=== PATIENT | female | born 1980 | race Caucasian/White ===

== ENCOUNTER 2025-06-27 16:08 | Emergency (ER) | payer OTHER, SELFPAY ==
--- NOTE | ~2025-06-27 | XR_ITS ---
EXAMINATION: XR CHEST CLINICAL INFORMATION: chest pain COMPARISON: 02/06/2010. TECHNIQUE: 2 views of the chest were obtained. FINDINGS: The cardiac, hilar, and mediastinal contours are normal. The lungs are clear bilaterally. There is no pneumothorax or pleural effusion. There is no focal osseous or soft tissue abnormality. XR/XR chest 2V IMPRESSION: Normal chest. Electronically signed by: Carlin Garcia MD 06/27/2025 05:04 PM [place]
--- NOTE | 2025-06-27 16:12 | ECG_ITS ---
Test Reason : CP Blood Pressure : */* mmHG Vent. Rate : 87 BPM Atrial Rate : 87 BPM P-R Int : 128 ms QRS Dur : 100 ms QT Int : 354 ms P-R-T Axes : * -8 162 degrees QTcB Int : 425 ms Normal sinus rhythm Incomplete right bundle branch block Lateral infarct , age undetermined Abnormal ECG No previous ECGs available Referred By: Kecia Dixon Electronically Signed By: NATALIA HUMPHREY
[2025-06-27 16:20] VITALS: BP 139/67; PULSE 89; RESP 18; TEMP 36.3; O2SAT 99; BMI 24.4
--- NOTE | 2025-06-27 16:26 | ED_ITS ---
HPI - Chest Pain General Chief Complaint: Chest Pain Stated Complaint: Palpitations Time Seen by Provider: 06/27/25 19:30 Source: patient Mode of arrival: ambulatory Limitations: no limitations History of Present Illness ED Provider: Kecia Dixon PA-C HPI narrative: Patient is a 44 year old female with a history asthma, anxiety, and depression presenting to the emergency department today with intermittent chest pain and elevated heart rate. Patient states that over the last day she has had intermittent chest pain with an elevated heart rate. Patient states that her heart rate normally sits in the 60s and it has been in the 80s over the last day or so. Patient denies any other complaints at this time. Related Data Home Medications ?Medication ?Instructions ?Recorded ?Confirmed albuterol (refill) 90 mcg inhalation 06/16/20 mcg/actuation aerosol inhaler Previous Rx's ?Medication ?Instructions ?Recorded nicotine 14 mg/24 hr daily 1 patch transdermal Q24H 28 days 06/16/20 transdermal patch #28 ea ciprofloxacin HCl 500 mg tablet 500 mg PO BID #14 tabs 07/20/21 (Cipro) phenazopyridine 200 mg tablet 200 mg PO TID 3 days #9 tabs 07/20/21 (Pyridium) albuterol sulfate 90 mcg/actuation 1 inh inhalation QI D 30 days #8.5 09/28/21 aerosol inhaler (Ventolin HFA) grams lorazepam 0.5 mg tablet 0.5 mg PO BID PRN anxiety 30 days 05/09/22 #60 tabs budesonide-formoterol HFA 160 2 puff inhalation Q12H 3 0 days 08/26/22 mcg-4.5 mcg/actuation aerosol #10.2 grams inhaler (Symbicort) Allergies Allergy/AdvReac Type Severity Reaction Status Date / Time azithromycin (AZITHROMYCIN) Allergy Intermediate NAUSEA, Verified 06/27/25 16:24 hives codeine (CODEINE) Allergy Intermediate NAUSEA Verified 06/27/25 16:24 Review of Systems 2 Constitutional: Constitutional: Reports as per HPI Eyes: Eyes: Reports as per HPI ENT: Reports as per HPI Cardiovascular: Cardiovascular: Reports as per HPI Respiratory: Respiratory: Reports as per HPI Gastrointestinal: Gastrointestinal: Reports as per HPI Genitourinary: Genitourinary: Reports as per HPI Musculoskeletal: Musculoskeletal: Reports as per HPI Integumentary/Breasts: Skin/Breast: Reports as per HPI Neurologic: Reports as per HPI Psychiatric: Psychiatric: Reports as per HPI Endocrine: Endocrine: Reports as per HPI Hematologic/Lymphatic: Hematologic/Lymphatic: Reports as per HPI Allergic/Immunologic: Allergic/Immunologic: Reports as per HPI [facility] Past Medical History Attestation statement: The following information was validated with the patient. Source: old records reviewed and nursing notes reviewed Medical History Asthma Anxiety and depression Family History Family History Father Mitral valve replaced Mother Hypertension Social History Social History Advance Directives: No Advance Directives Information Provided: Yes Do you have a plan to hurt others: No Plan Physical Exam 2 Vital Signs: Vital Signs: Last Vital Signs Temp 97.6 F 06/27/25 20:03 Pulse 76 06/27/25 20:03 Resp 20 06/27/25 20:03 BP 118/72 06/27/25 20:03 Pulse Ox 100 06/27/25 20:03 O2 Del Method Room Air 06/27/25 20:03 BMI result Body Mass Index 24.4 Const: General: cooperative, alert and awake Orientation/consciousness: p atient oriented x3 HEENT: Head: Yes normal to inspection and Yes atraumatic Ears: hearing grossly normal bilaterally and external ears normal General nose exam: Normal external nose present, no nasal discharge noted and no epistaxis Face and sinus: Yes normal facial exam, No abrasion and No laceration Mouth: Normal oral and palatal mucosa present, no drooling and no muffled voice Eyes: General: appearance normal, both eyes and all related structures P eriorbital: periorbital findings normal Eyelids: Yes eyelids normal C onjunctivae: conjunctivae normal Pupils: Equal, round and reactive pupils present EOM: EOMs intact bilaterally Resp: Effort & Inspection: normal respiratory effort and able to speak in complete sentences Neuro: General: patient oriented x3, moves all extremities and CN's II-XI intact bilaterally Cranial nerves: Yes Equal, round and reactive pupils present Cognition (Neuro): normal cognition Extrem: General: Yes full ROM Psych: Appearance: grossly normal Mental Status: mental status grossly normal Attitude: cooperative Course Course Course Narrative: Rapid medical examination performed in triage by Kecia Dixon PA-C: Patient is a 44 year old female presenting to the emergency department with intermittent chest pain. Detailed physical exam and review of systems are deferred to the social media marketing specialist. EKG, labs, imaging, swabs ordered. Patient placed back in the waiting room pending room availability and results. Medical Decision Making Medical Decision Making [facility] Narrative: Patient is a 44 year old female with a history asthma, anxiety, and depression presenting to the emergency department today with intermittent chest pain and elevated heart rate. Patient's physical exam was as noted in the physical exam portion of this note. Patient's blood work was unremarkable. Patient's EKG showed no obvious evidence of new / current arrhythmia, ischemia, or infarct. It did show some POSSIBLE evidence of previous ischemia that the patient should have evaluated by a hard rock drill operator. Patient's chest x-ray showed no acute process. I explained my physical exam findings as well as all test results to the patient. I answered all questions asked by the patient. I stressed the importance of the patient taking her medication as directed (either prescribed or as the over the counter packaging recommends). I stressed the importance of the patient following up with her primary care provider. I stressed the importance of the patient returning to the emergency department immediately if her symptoms were to worsen or if she were to develop any dizziness, shortness of breath, difficulty breathing, chest pain, blurry vision, loss of vision, nausea, vomiting, abdominal pain, fever, chills, back pain, or any other complaints. Patient verbalized agreement and understanding with this treatment plan and discharge. Differential Diagnosis Differential Diagnoses: The differential diagnosis associated with the presentation includes Intermittent chest pain Palpitations NSTEMI STEMI Admission/Observation Consideration of admission/observation: Escalation of care including admission/observation considered Patient would have been admitted to the hospital had her work up had any findings where hospital admission was appropriate and her clinical presentation warranted hospital admission. Lab Data [facility] Lab Attestation statement: I reviewed the patient's lab results. My interpretation of these results are in the [facility] Rationale portion of this note. 06/27/25 16:32 06/27/25 16:32 Labs: Lab Results 06/27/25 Range/Units 16:32 WBC 7.3 (4.8-10.8) X10*3/uL RBC 4.13 L (4.20-5.50) X10*6/uL Hgb 12.4 (12.0-16.0) g/dl Hct 37.2 (37.0-47.0) % MCV 90.1 (80.0-98.0) fL MCH 30.0 (27.0-33.0) pg MCHC 33.3 (31.0-35.0) g/dl RDW 12.9 (11.0-16.0) % Plt Count 216 (160-400) X10*3/uL MPV 10.0 (9.4-12.3) fL Immature Gran % (Auto) 0.3 (0.0-0.4) % Neut % (Auto) 56.9 (45-73) % Lymph % (Auto) 29.2 (20-40) % [place] % (Auto) 5.4 (2-11) % Eos % (Auto) 7.5 H (0-4) % Baso % (Auto) 0.7 (0-2) % Lymph # (Auto) 2.1 (1.2-4.9) X10*3/uL [place] # (Auto) 0.4 (0.1-1.2) X10*3/uL Eos # (Auto) 0.6 H (0.0-0.4) X10*3/uL Baso # (Auto) 0.1 (0.0-0.2) X10*3/uL Abs Immat Gran (auto) 0.02 (0.00-0.03) X10*3/uL Absolute Neuts (auto) 4.2 (2.0-8.3) x10*3/uL Absolute Nucleated RBC 0.000 (0.0-0.012) X10*3/uL Nucleated RBC % (auto) 0.0 (0.0-0.2) /100WBC Sodium 142 (135-145) mmol/L Potassium 3.5 (3.3-5.1) mmol/L Chloride 111 H (96-108) mmol/L Carbon Dioxide 25 (22-29) mmol/L Anion Gap 10 L (12-20) BUN 10 (9-16) mg/dL Creatinine 0.80 (0.5-1.4) mg/dL Estim Creat Clear Calc 87.2 Estimated GFR > 60 Random Glucose 100 (60-115) mg/dL Calcium 9.3 (8.4-10.2) mg/dL Magnesium 2.1 (1.6-2.6) mg/dL Total Bilirubin 0.3 (0.0-1.0) mg/dL AST 15 (5-31) U/L ALT 10 (0-31) U/L Alkaline Phosphatase 46 (39-117) U/L Troponin I High Sens < 2.7 (<3.5-17.0) ng/L NT-Pro-B Natriuret Pep 91.9 (<300) pg/mL Total Protein 7.0 (6.5-8.0) g/dL Albumin 4.7 (3.5-5.0) g/dL TSH 1.37 (0.32-4.0) uIU/mL Influenza Type A (PCR) NEGATIVE (Negative) Influenza Type B (PCR) NEGATIVE (Negative) RSV RNA Qual (PCR) NEGATIVE (Negative) SARS-CoV-2 RNA (RT-PCR) NEGATIVE (Negative) Independent Interpretation I performed an independent interpretation of an: Plain X-Ray Interpretation: My interpretation is in agreement with the radiologist's impression of this imaging study as written below. EXAMINATION: XR CHEST CLINICAL INFORMATION: chest pain COMPARISON: 02/06/2010. TECHNIQUE: 2 views of the chest were obtained. FINDINGS: The cardiac, hilar, and mediastinal contours are normal. The lungs are clear bilaterally. There is no pneumothorax or pleural effusion. There is no focal osseous or soft tissue abnormality. XR/XR chest 2V IMPRESSION: Normal chest. Electronically signed by: Carlin Garcia MD 06/27/2025 05:04 PM [facility] Dictated By: Carlin Garcia MD Signed By: Electronically signed by Carlin Garcia MD 06/27/25 1704 I independently interpreted this EKG and am in agreement with the below findings: Vent. Rate: 87 BPM Atrial Rate: 87 BPM P-R Int: 128 ms QRS Dur: 100 ms QT Int: 354 ms P-R-T Axes: * -8 162 degrees QTcB Int: 425 ms Normal sinus rhythm Incomplete right bundle branch block Lateral infarct, age undetermined No previous ECGs available DD/ 1626 Radiology Impression Discussion of test interpretation with radiology: I have reviewed the radiologist's reading. Discharge Plan Discharge Clinical Impression: Palpitations, Intermittent chest pain Patient Disposition: Home, Self-Care Instructions: Chest Pain (ED), Heart Palpitations (DC) Additional Instructions: Your work up today was reassuring there is no EMERGENT cause for your symptoms. Your EKG showed POSSIBLE evidence of OLD injury - this should be followed up on with a hard rock drill operator. IF you are prescribed home medications and/or you are taking over the counter medications at home - it is very important you continue to do so as prescribed / directed unless told otherwise by a healthcare provider. Follow up with your primary care provider. Do your best to stay well hydrated and rest. Return to the emergency department immediately if your symptoms worsen or if you develop any numbness, tingling, dizziness, shortness of breath, difficulty breathing, chest pain, blurry vision, loss of vision, nausea, vomiting, abdominal pain, fever, chills, back pain, or any other complaints. L If you do not have a primary care provider - call any of the below numbers to establish and follow up with a primary care provider. [facility] ([place]) [phone] [place] [address], [address] [facility] ([address] [place]) [phone] [place] [address], [address] [facility], [address] [facility] ([address] [place]) [phone] [place] [address], [address] [facility], [address] [facility] ([place]) [phone] [place] [address], [address] [facility], [address] [facility] Family [facility] [phone] [address] [facility], [address] Please see the information below about our Patient Portal. If you are not yet enrolled in the [facility] Patient Portal, you will receive an enrollment email invitation following your visit to any [facility] care setting. You may also self-enroll in the Patient Portal by visiting our website: [email or web address] The following information is required to access the Patient Portal: - Your [facility] Medical Record Number - Your personal home email address (must match what is in your electronic medical record, Registration staff can assist with this) - Name - Date of Capabilities of the Patient Portal: - Message some providers - View upcoming appointments - Access your health summary, medical history, and visit history - View current conditions and allergies - View procedure and lab results - View your medications, including guidelines, side effects, and precautions - Complete pre-appointment questionnaires requested by your provider - Ready summary reports of your office visits and procedures To access the Patient Portal Mobile Oc, follow these directions: - Search [address] in the Oc Store or Google [employer] Store - Download the Oc - Search for [facility] - Enter your login/password Prescriptions: No Action albuterol (refill) 90 mcg/actuation aerosol inhalation nicotine 14 mg/24 hr patch 24 hour 1 patch transdermal Q24H 28 Days Qty: 28 0RF albuterol sulfate [Ventolin HFA] 90 mcg/actuation HFA aerosol inhaler 1 inh inhalation QID 30 Days Qty: 8.5 7RF lorazepam 0.5 mg tablet 0.5 mg PO BID PRN (Reason: anxiety) 30 Days Qty: 60 3RF budesonide-formoterol [Symbicort] 160-4.5 mcg/actuation HFA aerosol inhaler 2 puff inhalation Q12H 30 Days Qty: 10.2 5RF ciprofloxacin HCl [Cipro] 500 mg tablet 500 mg PO BID Qty: 14 0RF phenazopyridine [Pyridium] 200 mg tablet 200 mg PO TID 3 Days Qty: 9 0RF Referrals: [facility] [Provider Group] Referral Note: Call to establish and follow up with a hard rock drill operator. Interventions: ED Discharge Assessment Last Done: 06/27/25 20:03 Discharge Date/Time: 06/27/25 20:09 Print Language: Afghan
[2025-06-27 16:45] LABS: MANUAL DIFF FLAG NO
[2025-06-27 16:48] LABS: Hematocrit 37.2 % (37.0-47.0); Hemoglobin 12.4 g/dl (12.0-16.0); Imm Gran Abs Auto 0.02 X10*3/uL (0.00-0.03); Imm Gran Pct Auto 0.3 % (0.0-0.4); Lymphocytes Absolute Auto 2.1 X10*3/uL (1.2-4.9); Mean Corpuscular HGB Conc 33.3 g/dl (31.0-35.0); Mean Corpuscular Hemoglobin 30.0 pg (27.0-33.0); Mean Corpuscular Volume 90.1 fL (80.0-98.0); NRBC Abs Auto 0.000 X10*3/uL (0.0-0.012); NRBC Pct Auto 0.0 /100WBC (0.0-0.2); Platelet Count 216 X10*3/uL (160-400); Red Blood Count 4.13 X10*6/uL (4.20-5.50); White Blood Count 7.3 X10*3/uL (4.8-10.8)
[2025-06-27 17:03] LABS: Alanine Aminotransferase 10 U/L (0-31); Albumin Level 4.7 g/dL (3.5-5.0); Alkaline Phosphatase 46 U/L (39-117); Anion Gap 10 (12-20); Aspartate Amino Transferase 15 U/L (5-31); Blood Urea Nitrogen 10 mg/dL (9-16); Calcium 9.3 mg/dL (8.4-10.2); Carbon Dioxide 25 mmol/L (22-29); Chloride 111 mmol/L (96-108); Creatinine Clr Calc Pharmacy 87.2; Estimated Glomerular Filt Rate > 60; Magnesium 2.1 mg/dL (1.6-2.6); Potassium 3.5 mmol/L (3.3-5.1); Sodium 142 mmol/L (135-145); Total Protein 7.0 g/dL (6.5-8.0)
[2025-06-27 17:14] LABS: Troponin-I High Sensitivity < 2.7 ng/L (<3.5-17.0)
[2025-06-27 17:24] LABS: NT Pro B Type Natriuretic Pept 91.9 pg/mL (<300)
[2025-06-27 17:50] LABS: Resp Syncy Virus RNA Qual PCR NEGATIVE (Negative); SARS COV2 PCR INHOUSE NEGATIVE (Negative)
[2025-06-27 19:45] VITALS: BP 118/72; PULSE 76; RESP 20; TEMP 36.4; O2SAT 100
[2025-06-27 20:03] VITALS: BP 118/72; PULSE 76; RESP 20; TEMP 36.4; O2SAT 100
--- OUTSIDE RECORDS SUMMARY | 2025-06-27 20:09 | XMS_ITS | Clinical Summary ---
Author Organization [facility] Address [address] [place] [phone] Phone Care Team Providers Care Barrel Raiser Helper Name Role Phone Lilia Caballero MD Primary Care Provider Allergies Active Allergy Reactions Criticality Noted Date Comments Azithromycin 01/09/2023 Other reaction(s): abdominal pain Medications LORazepam (ATIVAN) 0.5 MG tablet TAKE 1 TABLET BY MOUTH TWICE A DAY NEEDED FOR ANXIETY FOR 30 DAYS 3 Active SYMBICORT 160-4.5 mcg/actuation inhaler INHALE 2 PUFF BY MOUTH AND INTO THE LUNGS EVERY 12 HOURS FOR 30 DAYS 3 Active albuterol (PROAIR HFA) 90 mcg/actuation inhaler INHALE 2 PUFFS EVERY 4 HOURS BY INHALATION ROUTE. Active phenazopyridine (PYRIDIUM) 200 MG tablet Take 1 tablet (200 mg total) by mouth 3 (three) times a day as needed for pain (specific location in comments). 10 tablet 3 Active Active Problems No known active problems Social History Tobacco Use Types Packs/Day Years Used Date Smoking Tobacco: Never Smokeless Tobacco: Never Alcohol Use Standard Drinks/Week Comments Never 0 (1 standard drink = 0.6 oz pur e alcohol) Education Answer Date Recorded Are you interested in more education? Not on uma e 01/09/2023 Are you concerned about learning? Not on file 01/09/2023 No 01/09/2023 No 01/09/2023 Digital Access Answer Date Recorded No 01/09/2023 No 01/09/2023 Reliable internet access at home? Not on file 01/09/2023 Device with a working camera? Not on file Comments No Sex and Gender Information Value Date Recorded Sex Assigned at Not on file Legal Sex Female 1:06 PM EDT Gender Identity Not on file Sexual Orientation Not on file Last Filed Vital Signs Vital Sign Reading Time Taken Comments Blood Pressure 122/74 01/09/2023 1:55 PM EDT Pulse 73 01/09/2023 1:55 PM EDT Temperature 36.7 C (98.1 F) 01/09/2023 1:55 PM EDT Respiratory Rate 18 01/09/2023 1:55 PM EDT Oxygen Saturation 99% 01/09/2023 1:55 PM EDT Inhaled Oxygen Concentration - - Weight 63.5 kg (140 lb) 01/09/2023 1:55 PM EDT Height 170.2 cm (5' 7 ) 01/09/2023 1:55 PM EDT Body Mass Index 21.93 01/09/2023 1:55 PM EDT Plan of Treatment Health Maintenance Due Date Last Done Comments Adult Td,Tdap Booster 1980 DEPRESSION SCREENING 1992 HEPATITIS C SCREENING 1998 HIV ONE-TIME SCREENING (18-6 5 YEARS) 1998 PAP SMEAR 2001 MAMMOGRAM 2020 INFLUENZA VACCINE (#1) 2025 COVID-19 VACCINE (2024-2 6 season) 2025 SMOKING STATUS SCREENING (On ce After 26 Yrs) Completed 01/09/2023 HEPATITIS A VACCINES Aged Out No long er eligible based on patient's age to complete this topic HIB VACCINES Aged Out No longer eligi ble based on patient's age to complete this topic MENINGOCOCCAL VACCINES (ACWY) Aged Out No longer eligible based on patient's age to complete this topic MENINGOCOCCAL VACCINES (B) Aged Out N o longer eligible based on patient's age to complete this topic PNEUMOCOCCAL VACCINES (0-49 years) Aged Out No longer eligible based on patient's age to complete this topic Medical Devices Not on [place] [address] [place] [address] ACO ACO ACO ACO ACO ACO Care Teams Barrel Raiser Helper Relationship Specialty Start Date End Date Lilia Caballero MD [facility] [place] [address] PCP - General Internal Medicine 01/09/23 Additional Source Comments The information contained in this document represents components of the legal health record. It is not the complete legal health record.[facility]
--- OUTSIDE RECORDS SUMMARY | 2025-06-27 20:09 | XMS_ITS | Data Portability ---
Author Organization [place] - [facility] Address [address] [place] [address] Care Team Providers Care Supervisor [employer] Name Role Phone RAFFY BLAIR Primary Care Provider [phone] Assessment No assessment recorded. Plan of Treatment Reminders Order Date Submit Date Provider Last Modified By Organization Details Last Modified Time Details Appointments None recorded. Lab urinalysis, dipstick 2020 [facility], [address] , [facility] [place], [address], 16:31:41 culture, urine 2020 [facility], [address] , [facility] [place], [address], 07:26:14 test, urine 2020 [facility], [address] , [place], [address], 16:31:41 bacterial vaginosis + vaginitis panel, vaginal - NuSwab V6+ Lab Gregory: [id number] 2020 [facility], [address] [place] [address], [address], 14:18:19 unlisted lab - sars-cov-2 (naat) 2020 [facility], [address] [place], [address], 03:45:08 Referral None recorded. Procedures pulse oximetry (PROC) 2020 [facility], [address] , [place], [address], 08:49:38 pulse oximetry (PROC) 2020 [facility], [address] , [place], [address], 08:48:47 Surgeries None recorded. Imaging None recorded. Medication Orders metronidazo le 500 mg tablet 2020 [facility]/Pharmacy #[id number], [address] [place], [address], 16:30:16 doxycycline monohydrate 100 mg capsule 2020 021 [facility]/Pharmacy #[id number], [address] [place], [address], 11:12:44 ProAir HFA 90 mcg/actuati on aerosol inhaler 2020 [facility]/Pharmacy #[id number], [address] [place], [address], 11:12:43 prednisone 50 mg tablet 2020 [facility]/Pharmacy #[id number], [address] [place], [address], 11:12:43 Patient TargetsNo targets recorded. Patient Instructions Encounter Date Encounter Id Patient Instructions Last Modified By Organization Details Last Modified Time 05/18/2021 [id number] pneumonia: care instructions cambler Not available 05/18/2021 11:12:39 06/01/2021 [id number] it is recommende d you abstain from intercourse for 1 week while you are being treated, and following this time only if you are asymptomatic. it is also recommended you and your partner have repeat testing in 3 months. avaine Not available 06/01/2021 16:34:40 You have had an Urgent Care Visit which is designed to address acute issues. It does not represent an exhaustive evaluation of your symptom complex, but is an attempt to treat and manage the most likely cause of your most pressing physical issues. If you are not improved in the time frame that we have discussed, please seek the advice of your PCP who is in a position to order further diagnostic testing and possible specialist consultation. If you are rapidly deteriorating despite the treatment recommendations please do not wait to see your PCP and do proceed to the closest ER where a comprehensive evaluation including consideration to lab and other diagnostic testing as well as consultation is more expeditiously accessible. If you were prescribed medications they have been directly submitted to your pharmacy on file. Please make sure you finish all your medications and if you develop major side effects related to them please do stop taking them and check with your PCP to see if you need to get an alternative medication. If labs or xray were ordered, we will call you with the results if there is any change to your plan of care. avaine Not available 06/01/2021 16:31:07 Reason for Referral None Reported. Results Created Date Observation Date Name Description Value Unit Range Abnormal Flag Note LastModifiedBy Organization Detail LastModifiedTime 05/18/20 21 05/19/2021 SARS- COV-2 (NAAT ) sars-cov-2 NOT DETECT ED not detect . The Aptim a SARS- CoV-2 assay is a nucle ic acid ampli ficat ion in vitro diagn ostic test inten ded for the quali tativ e detec tion of RNA from SARS- CoV-2 using Trans cript ion Media stewart Ampli ficat ion (TMA) isola stewart and purif ied from nasop haryn geal (T[employer]IC), nasal , mid-t urbin ate, and oroph aryng eal (OP) swab speci mens obtai andres from indiv idual s meeti ng COVID -19 clini juan and/o r epide miolo gical crite vian. The Aptim a TMA metho d is equiv alent in sensi tivit y and speci ficit y to metho ds utili zing PCR and RT-PC R. Resul ts are for the ident ifica tion of SARS- CoV-2 RNA which is gener ally detec table in upper respi rator y sampl es durin g the acute phase of infec tion. Posit george resul ts are indic ative of the prese nce of SARS- CoV-2 RNA; clini juan corre latio n with patie nt histo ry and other diagn ostic infor matio n is neces geovanna to deter mine patie nt infec tion statu s. Posit george resul ts do not rule out bacte rial infec tion or co-in fecti on with other virus es. Negat george resul ts do not precl ude SARS- CoV-2 infec tion and shoul d not be used as the sole basis for patie nt manag ement decis ions. Negat george resul ts must be combi andres with clini juan obser vatio ns, patie nt histo ry, and epide miolo gical infor matio n. The Aptim a SARS- CoV-2 assay is only for use under the Food and Drug Admin istra tion' s Emerg ency Use Autho rizat ion (EUA) . Not Available [facility] Laboratory Department [address] [place] [address], [id number] 05/19/2021 03:45:08 05/20/20 21 05/20/2021 pulse oxime try (PROC ) Unknown Analyte 80 Not Available [facility] [address], [address], 05/18/2021 11:08:53 05/20/20 21 05/20/2021 pulse oxime try (PROC ) Unknown Analyte 97 Not Available [facility] [address], [address], 05/18/2021 11:08:53 05/20/20 21 05/20/2021 pulse oxime try (PROC ) Unknown Analyte sittin g Not Available [facility] [address] [place], [address], 05/18/2021 11:08:53 05/20/20 21 05/20/2021 pulse oxime try (PROC ) Unknown Analyte room air Not Available [facility] [address] [place], [address], 05/18/2021 11:08:53 05/20/20 21 05/20/2021 pulse oxime try (PROC ) Unknown Analyte 80 Not Available [address] [place] [place], [address], 05/18/2021 11:07:55 05/20/20 21 05/20/2021 pulse oxime try (PROC ) Unknown Analyte 97 Not Available [address], [address], 05/18/2021 11:07:55 05/20/20 21 05/20/2021 pulse oxime try (PROC ) Unknown Analyte sittin g Not Available [address] [facility] [place], [address], 05/18/2021 11:07:55 05/20/20 21 05/20/2021 pulse oxime try (PROC ) Unknown Analyte room air Not Available [address], [address], 05/18/2021 11:07:55 06/01/2006/03/2021 URINE CULTU RE urine culture Colon y Count : <1,00 0 col/m L No Growt h Not Available [facility] Laboratory Department [address] [place], [address] 06/03/2021 07:26:14 06/01/20 21 06/05/2021 NUSWA B VAGIN ITIS PLUS (VG+) atopobium vaginae HIGH - 2 score . abnormal Not Available [facility] Department [address] [place] [address], [id number] 06/05/2021 14:18:19 06/01/20 21 06/05/2021 NUSWA B VAGIN ITIS PLUS (VG+) bvab 2 HIGH - 2 score . abnormal Not Available [facility] Department [address] [place] [address], [id number] 06/05/2021 14:18:19 06/01/20 21 06/05/2021 NUSWA B VAGIN ITIS PLUS (VG+) megasphaera 1 LOW - 0 score . Calcu late total score by collette montez the 3 indiv idual bacte rial vagin osis (BV) marke r score s toget her. Total score is inter prete d as follo ws: Total score 0-1: Indic ates the absen ce of BV. Total score 2: Indet ermin ate for BV. Addit ional clini juan data shoul d be evalu ated to estab uri a diagn osis. Total score 3-6: Indic ates the prese nce of BV. This test was devel oped and its perfo rmanc e rosina cteri stics deter mined by [facility]. It has not been clear ed or appro dorinda by the Food and Drug Admin istra tion. Not Available [facility] Department [address] [place] [address], [id number] 06/05/2021 14:18:19 06/01/20 21 06/05/2021 NUSWA B VAGIN ITIS PLUS (VG+) esperanza albicans, JARED POSITI VE negati ve abnormal Not Available [facility] Department [address] [place] [address], [id number] 06/05/2021 14:18:19 06/01/20 21 06/05/2021 NUSWA B VAGIN ITIS PLUS (VG+) esperanza glabrata, JARED NEGATI VE negati ve Not Available [facility] Department [address] [place] [address], [id number] 06/05/2021 14:18:19 06/01/20 21 06/05/2021 NUSWA B VAGIN ITIS PLUS (VG+) trich vag by JARED NEGATI VE negati ve Not Available [facility] Department [address] [place] [address], [id number] 06/05/2021 14:18:19 06/01/20 21 06/05/2021 NUSWA B VAGIN ITIS PLUS (VG+) chlamydia trachomatis, JARED NEGATI VE negati ve Not Available [facility] Department [address] [place], [address] 06/05/2021 14:18:19 06/01/20 21 06/05/2021 NUSWA B VAGIN ITIS PLUS (VG+) neisseria gonorrhoeae, JARED NEGATI VE negati ve Perfo rmed at: 01 - [facility] [place] [address] Count Includes [facility] [address] [place] [address] Lab Direc tor: Trinity Smith MD, Phone : [phone] Not Available [facility] Laboratory Department [address] [place], [address] 06/05/2021 14:18:19 06/01/20 21 06/01/2021 pregn emi test, urine Result negati ve Not Available [address] [place], [address], 06/01/2021 16:26:13 06/01/20 21 06/01/2021 pregn emi test, urine Internal Control Valid Not Available [address] [place], [address], 06/01/2021 16:26:13 06/01/20 21 06/01/2021 pregn emi test, urine Lot # [id number] 2001 Not Available [address] [place], [address], 06/01/2021 16:26:13 06/01/2006/01/2021 pregn emi test, urine Exp. Date Not Available [address], [address], 06/01/2021 16:26:13 06/01/20 21 06/01/2021 urina lysis , dipst ick Lot # [id number] Not Available [facility] [address] [place] [address], [address], 06/01/2021 14:59:25 06/01/20 21 06/01/2021 urina lysis , dipst ick Exp. Date Not Available [facility] [address] [place] [address], [address], 06/01/2021 14:59:25 06/01/20 21 06/01/2021 urina lysis , dipst ick Leukocytes Trace Not Available [facility] [address] [place], [address], 06/01/2021 14:59:25 06/01/20 21 06/01/2021 urina lysis , dipst ick Nitrite negati ve Not Available [facility] [address] [place], [address], 06/01/2021 14:59:25 06/01/20 21 06/01/2021 urina lysis , dipst ick Urobilinogen Normal Not Available [facility] [address] [place], [address], 06/01/2021 14:59:25 06/01/20 21 06/01/2021 urina lysis , dipst ick Protein Negati ve Not Available [facility] [address] [place], [address], 06/01/2021 14:59:25 06/01/20 21 06/01/2021 urina lysis , dipst ick PH 6.5 Not Available [facility] [address] [place], [address], 06/01/2021 14:59:25 06/01/20 21 06/01/2021 urina lysis , dipst ick Blood Non-He molyze d Not Available [facility] In [address] [place], [address], 06/01/2021 14:59:25 06/01/20 21 06/01/2021 urina lysis , dipst ick Specific Carmine 1.010 Not Available [facility] In [address] [place], [address], 06/01/2021 14:59:25 06/01/20 21 06/01/2021 urina lysis , dipst ick Ketone Negati ve Not Available [facility] In [address] [place], [address], 06/01/2021 14:59:25 06/01/20 21 06/01/2021 urina lysis , dipst ick Bilirubin Negati ve Not Available [address] [place], [address], 06/01/2021 14:59:25 06/01/20 21 06/01/2021 urina lysis , dipst ick Glucose Negati ve Not Available [address] [place], [address], 06/01/2021 14:59:25 Result Notes None recorded. Problems Name Problem SNOMED Code Status Onset Date Resolution Date Notes Provider Name and Address Organization Details Recorded Time Asthma 244004180 Active 021 YUDI STEVENSON NP [address] [place], [address], [facility] 11:02:12 Problem Notes None recorded. Medical Equipment None Reported. Allergies Allergen ID Allergen Name Allergen Category Reaction Reaction Severity Criticality Documentation Date Start Date Code Code System Note Provider Name and Address Organization Details Recorded Time 855597 Zithromax medicatio n abdominal pain Not available Not available 05/18/2021 4 RxNorm Mary Love josé manuel [facility] 10:39:45 Medications Name Sig Start Date Stop Date Status Note LastModified by Organization Details LastModified Time Diflucan 150 mg tablet Take 1 tablet every day by oral route for 1 day. 2020 active Not Available Not Available Not Avai lable metronidazol e 500 mg tablet Take 1 tablet every 12 hours by oral route for 7 days. 2020 active Not Available Not Available Not Avai lable doxycycline monohydrate 100 mg capsule Take 1 capsule twice a day by oral route for 10 days. 2020 active Not Available Not Available Not Avai lable prednisone 50 mg tablet Take 1 tablet every day by oral route for 5 days. 2020 active Not Available Not Available Not Avai lable albuterol sulfate active Not Available Not Available Not Available ProAir HFA 90 mcg/actuatio n aerosol inhaler INHALE 2 PUFFS EVERY 4 HOURS BY INHALATION ROUTE. active Not Available Not Available No t Available Symbicort active Not Available Not Farideh ilable Not Available Vitals Date Recorded Heart rate Oxygen saturation Body temperature Systolic And Diastolic Provider Name and Address Organization Details Last Updated DateTime 05/18/2021 80 /min 97 % 98.4 [degF] 118/78 mm[Hg] Mary Love [facility] 10:43:02 Date Recorded Body temperature Heart rate Oxygen saturation Systolic And Diastolic Provider Name and Address Organization Details Last Updated DateTime 06/01/2021 99.1 [degF] 91 /min 97 % 130/90 mm[Hg] Josseline Bahena [facility] 13:15:04 Social History None recorded. Functional Status None recorded. Mental Status None recorded. Family History Nothing Reported. Medical History No medical history recorded. Gynecological HistoryNo gynecological history recorded. Obstetrics History GPAL:G 0 P 0 0 0 0 Past Encounters Encounter ID Performer Location Encounter Start Date Encounter Closed Date Diagnosis/Indication Diagnosis SNOMED-CT Code Diagnosis ICD10 Code Diagnosis IMO Codes Diagnosis Note [id number] PATO STEVENSON NP [facility] [address] [address] 05/18/2021 09:32:06 05/18/2021 11:36:12 Cough 37275570 R05.9 quarantine until covid-19 testing is back. see pneumonia. Pneumonia 054935563 J18. 9 S uspect Pneumonia at this time. Will tx with antibiotic s as below. Educated pt on side effects, including nausea and diarrhea. Recommende d pt takes a probiotic daily or eats yogurt while on abx therapy. Encouraged pt to stay well hydrated and rest. Pt to f/u in 3-5 days if symptoms are not improving or have worsened. Will order labs as below and f/u with patient on results. Advised to go to ER if condition rapidly deteriorat ing or develops respirator y distress. Acute exac erbation of asthma 862707983 J45.901 Suspect pneumonia is complicati ng her asthmatic condition causing an exacerbati on. Treating as below. Continue at home inhaled medication s. Advise supportive care with rest and fluids. Pt to f/u with PCP in 2-3 days, sooner if any worsening of symptoms. [id number] Zahira Guajardo NP [facility] [address] [address] 06/01/2021 13:02:25 06/01/2021 13:58:29 Vaginal discharge 613109508 N89.8 40-year-ol d female seen and examined today for complaint of vaginal discharge patient is concerned she has BVD. Patient has an extensive history of BVD patient states she noted on the last several days Cultures done will treat with medication below, genital culture pending. Discussed vaginitis prevention and OTC options for symptomati c relief. Pt to follow-up in 3-5 days if symptoms are not improving, sooner if worsening. VS reviewed Health Concerns Section Related Observation LastModified by Organization Detai ls LastModified Time None Recorded Concern Status LastModified by Organization Details LastModified Time None Recorded Advance Directives Directive None Recorded Payers Insurance Date Sequence Insurance Name Policy Number Policy Romo Covered Member ID Romo Member ID Guarantor Name 12/02/2022 2 [place]ICAID-[place]: [facility] Karime Adams [id number] Karime Adams 12/02/2022 1 [employer] [employer] - HEALTH NET PLAN (MEDICAID HMO) ALDO Adams [id number] Karime Adams Notes Date Note Type Note Provider Name and Address Organization Details Recorded Time 05/18/2021 text/html Pt presents today in the office for cough and runny nose. Pt states she has asthma-KRISTAL c/o rhinorrhea, productive cough productive of white sputum for the last week or two. has gotten leftover prednisone from her friend and is taking 10mg po qd. is concerned for pneumonia. has intermittent chills, no fevers. using inhaler several times per day. Rina Dimas MD [address] [place], [address], [facility] 05/18/2021 16:25:20 06/01/2021 text/html pt states intercourse friday with partner since then odor discharge possible bv?40-year-old female presents complaining of possible BVD. Patient says notices mild she is having mild discharge patient states she has a history of pain and was last treated in March. Patient denies any urinary symptoms is sexually active with one partner. No abdominal pain. No fever. Lucho [place] III, MD [address] [place], [address], [facility] 06/01/2021 17:45:38 OBGyn Episode No OBEpisode recorded.
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
== END 2025-06-27 20:09 | disposition home or self-care (01) ==
LOC: HO.ED 20:06
PROVIDERS: Physician Assistant Medical; Emergency Provider Emergency Medicine
DX: R07.89 Other chest pain (principal); R00.2 Palpitations; R06.02 Shortness of breath; Z03.818 Encounter for observation for suspected exposure to other biological agents ruled out; Z79.899 Other long term (current) drug therapy
CPT/HCPCS: 36415; 71046; 80053; 83735; 83880; 84443; 84484; 85025; 87637; 93005; 99284

== ENCOUNTER → 2025-06-27 16:12 | Outpatient (BNV) | payer OTHER, SELFPAY | PROVIDERS: Emergency Provider Emergency Medicine; Visit Provider Internal Medicine | DX: I45.10 Unspecified right bundle-branch block (principal) | CPT/HCPCS: 93010 ==

== ENCOUNTER → 2025-06-27 16:26 | Outpatient (BNV) | payer OTHER, SELFPAY | PROVIDERS: Visit Provider Radiology Diagnostic Radiology | DX: R07.9 Chest pain, unspecified (principal) | CPT/HCPCS: 71046 ==